=== PATIENT | female | born 1950 | race Caucasian/White ===

== ENCOUNTER 2024-02-29 08:16 | Outpatient (OUT) | payer MEDICARE, SELFPAY ==
--- NOTE | 2024-02-29 | XR_ITS ---
The [address] [address] Patient Name: CLAUS PERALTA MRN: [id number] date: 1950 Sex: F Assigned Patient Location: Current Patient Location: Accession/Order Number: [id number] Exam Date: 02/29/2024 14:05 Report Date: 03/01/2024 05:53 At the request of: COLUMBA HINTON Procedure: XR foot LT min 3V PROCEDURE: XR foot LT min 3V HISTORY: LEFT FOOT PAIN ; recent forefoot injury; heel pain COMPARISON: None. FINDINGS: BONES:Mild degenerative changes the first metatarsophalangeal joint. Remote posterior matter changes of the head of 5th metatarsal. Small calcaneal plantar spur. SOFT TISSUES:No visible soft tissue swelling. EFFUSION:None visible. OTHER: Negative. XR/XR foot LT min 3V IMPRESSION: 1. Mild degenerative changes and remote posttraumatic changes. 2. No appreciable acute abnormality. Electronically authenticated by: REMIGIO HANKINS Date: 03/01/2024 05:53
== END 2024-02-29 08:17 | disposition home or self-care (01) ==
PROVIDERS: Visit Provider Podiatrist Foot & Ankle Surgery
DX: M79.672 Pain in left foot (principal)
CPT/HCPCS: 73630